=== PATIENT | female | born 1965 | race Caucasian/White ===

== ENCOUNTER 2017-01-25 13:11 | Emergency (ER) | payer MEDICAID ==
[2017-01-25 13:36] VITALS: RESP 16; BMI 29.2
--- NOTE | 2017-01-25 13:51 | C.PDOC ---
History Of Present Illness 51 y/o female presents to emergency department with complaint of palpitations and chest pain for 2 days. Patient reports chest pain is sharp. Also notes headache onset just prior to arrival. Denies any significant past medical history; reports history of tubal ligation and cholecystectomy. Otherwise denies fever, chills, nausea, vomiting, SOB, cough, or other associated symptoms. Time Seen by Provider: 01/25/17 13:25 Chief Complaint (Nursing): Palpitations History Per: Patient History/Exam Limitations: no limitations Onset/Duration Of Symptoms: Days (2) Current Symptoms Are (Timing): Still Present Recent travel outside of the [place]: No Past Medical History Reviewed: Historical Data, Nursing Documentation, Vital Signs Vital Signs: Last Vital Signs Temp 98.2 F 01/25/17 13:28 Pulse 90 01/25/17 13:28 Resp 16 01/25/17 13:28 BP 113/77 01/25/17 13:28 Pulse Ox 98 01/25/17 13:28 - Medical History PMH: Asthma, Diverticulitis Surgical History: Cholecystectomy - [facility] Procedures TETANUS TOXOID ADMINIST (04/23/13) Family History: States: Unknown Family Hx - Social History Hx Tobacco Use: Yes Hx Alcohol Use: No Hx Substance Use: No - Immunization History Hx Tetanus Toxoid Vaccination: No Hx Influenza Vaccination: No Hx Pneumococcal Vaccination: No Review Of Systems Except As Marked, All Systems Reviewed And Found Negative. Constitutional: Negative for: Fever, Chills Cardiovascular: Positive for: Chest Pain, Palpitations Respiratory: Negative for: Cough, Shortness of Breath, Wheezing Gastrointestinal: Negative for: Nausea, Vomiting, Abdominal Pain Skin: Negative for: Rash Neurological: Positive for: Headache. Negative for: Dizziness Physical Exam - Physical Exam Appears: Non-toxic, No Acute Distress Skin: Normal Color, Warm, Dry Head: Atraumatic, Normacephalic Oral Mucosa: Moist Chest: Symmetrical Cardiovascular: Rhythm Regular, No Murmur Respiratory: Normal Breath Sounds, No Rales, No Rhonchi, No Wheezing Gastrointestinal/Abdominal: Soft, No Tenderness, No Guarding, No Rebound Back: Normal Inspection Extremity: Normal ROM, Capillary Refill (< 2 sec. ) Neurological/Psych: Oriented x3, Normal Speech, Normal Cognition ED Course And Treatment O2 Sat by Pulse Oximetry: 98 (RA) Pulse Ox Interpretation: Normal Progress Note: Cardiac workup. - PA / FILLING STATION ATTENDANT / Resident Statement MD/DO has reviewed & agrees with the documentation as recorded. - Scribe Statement The provider has reviewed the documentation as recorded by the Madelynibgurdeep Posada All medical record entries made by the Linda were at my direction and personally dictated by me. I have reviewed the chart and agree that the record accurately reflects my personal performance of the history, physical exam, medical decision making, and the department course for this patient. I have also personally directed, reviewed, and agree with the discharge instructions and disposition.
--- NOTE | 2017-01-25 13:53 | C.PDOC ---
History Of Present Illness 51 y/o female presents to emergency department with complaint of palpitations and chest pain for 2 days. Patient reports chest pain is sharp. Also notes headache onset just prior to arrival. Denies any significant past medical history; reports history of tubal ligation and cholecystectomy. Otherwise denies fever, chills, nausea, vomiting, SOB, cough, or other associated symptoms. Time Seen by Provider: 01/25/17 13:25 Chief Complaint (Nursing): Palpitations History Per: Patient History/Exam Limitations: no limitations Onset/Duration Of Symptoms: Days (2) Current Symptoms Are (Timing): Still Present Associated Symptoms: denies: Dyspnea, Diaphoresis Exacerbating Factors: None Recent travel outside of the [place]: No Past Medical History Reviewed: Historical Data, Nursing Documentation, Vital Signs Vital Signs: Last Vital Signs Temp 98.2 F 01/25/17 13:28 Pulse 90 01/25/17 13:28 Resp 16 01/25/17 13:28 BP 113/77 01/25/17 13:28 Pulse Ox 98 01/25/17 15:48 - Medical History PMH: Asthma, Diverticulitis Surgical History: Cholecystectomy - [facility] Procedures TETANUS TOXOID ADMINIST (04/23/13) Family History: States: Unknown Family Hx - Social History Hx Tobacco Use: Yes Hx Alcohol Use: No Hx Substance Use: No - Immunization History Hx Tetanus Toxoid Vaccination: No Hx Influenza Vaccination: No Hx Pneumococcal Vaccination: No Review Of Systems Except As Marked, All Systems Reviewed And Found Negative. Constitutional: Negative for: Fever, Chills Cardiovascular: Positive for: Chest Pain, Palpitations Respiratory: Negative for: Cough, Shortness of Breath, Wheezing Gastrointestinal: Negative for: Nausea, Vomiting, Abdominal Pain Skin: Negative for: Rash Neurological: Positive for: Headache (mild). Negative for: Dizziness Physical Exam - Physical Exam Appears: Non-toxic, No Acute Distress Skin: Normal Color, Warm, Dry Head: Atraumatic, Normacephalic Oral Mucosa: Moist Chest: Symmetrical, Tenderness (anterior chest) Cardiovascular: Rhythm Regular Respiratory: Normal Breath Sounds, No Rales, No Rhonchi, No Wheezing Gastrointestinal/Abdominal: Soft, No Tenderness, No Guarding, No Rebound Back: Normal Inspection Extremity: Normal ROM, Capillary Refill (< 2 sec. ) Neurological/Psych: Oriented x3, Normal Speech, Normal Cognition ED Course And Treatment - Laboratory Results Result Diagrams: 01/25/17 13:50 01/25/17 13:50 Lab Interpretation: Normal ECG: Interpreted By Me ECG Rhythm: Sinus Rhythm ECG Interpretation: Normal Rate From EC O2 Sat by Pulse Oximetry: 98 (RA) Pulse Ox Interpretation: Normal - Radiology CXR: Interpreted by Me CXR Interpretation: Yes: No Acute Disease Progress Note: Cardiac workup ordered. Treated with Tylenol for headache. Treated with toradol IV Reassessment Condition: Improved Disposition Counseled Patient/Family Regarding: Studies Performed, Diagnosis, Need For Followup, Rx Given - Disposition Referrals: Rao Lorenz MD [Medical Doctor] - Disposition: HOME/ ROUTINE Disposition Time: 17:00 Condition: STABLE Additional Instructions: Return to ED if any increase symptoms Return to ED if any increase symptoms Prescriptions: Naproxen [Naprosyn] 1 tab PO BID PRN #25 tab PRN Reason: Pain Instructions: Palpitations (ED), Chest Wall Pain (ED) - POA Present On Arrival: None - Clinical Impression Clinical Impression: Palpitations, Chest wall pain - PA / FACILITY ENGINEER / Resident Statement MD/DO has reviewed & agrees with the documentation as recorded. - Scribe Statement The provider has reviewed the documentation as recorded by the Scribe Alphonse Posada All medical record entries made by the Madelynibe were at my direction and personally dictated by me. I have reviewed the chart and agree that the record accurately reflects my personal performance of the history, physical exam, medical decision making, and the department course for this patient. I have also personally directed, reviewed, and agree with the discharge instructions and disposition.
[2017-01-25 13:54] LABS: BASO # 0.1 K/uL (0.0-0.2); BASO % 1.3 % (0.0-2.0); EOS # 0.3 K/uL (0.0-0.7); EOS % 3.4 % (0.0-4.0); HEMATOCRIT 43.1 % (34.0-47.0); LYMPH # 4.3 K/uL (1.0-4.3); LYMPH % 40.9 % (20.0-40.0); MEAN CORPUSCULAR HEMOGLOBIN 26.1 pg (27.0-31.0); MEAN CORPUSCULAR HGB CONC 32.6 g/dL (33.0-37.0); MEAN PLATELET VOLUME 10.1 fL (7.2-11.7); MONO # 0.6 K/uL (0.0-0.8); MONO % 5.4 % (0.0-10.0); NRBC % 0.1 % (0.0-2.0); RED CELL DISTRIBUTION WIDTH 14.4 % (11.5-14.5); WHITE BLOOD COUNT 10.4 K/uL (4.8-10.8)
[2017-01-25 14:02] LABS: CHLORIDE 99 mmol/L (98-107)
[2017-01-25 14:03] LABS: POTASSIUM 4.1 mmol/L (3.6-5.2); SODIUM 138 mmol/L (132-148)
--- NOTE | 2017-01-25 14:04 | RAD ---
HISTORY: SOB COMPARISON: None available. TECHNIQUE: Chest, one view. FINDINGS: Examination limited by habitus. LUNGS: No focal consolidation. Please note that chest x-ray has limited sensitivity for the detection of pulmonary masses. PLEURA: No significant pleural effusion identified. No definite pneumothorax . CARDIOVASCULAR: The cardiomediastinal silhouette appears within normal limits of size. OSSEOUS STRUCTURES: No acute osseous abnormality identified. VISUALIZED UPPER ABDOMEN: Unremarkable. OTHER FINDINGS: None. IMPRESSION: No focal consolidation, significant pleural effusion, or definite pneumothorax identified.
[2017-01-25 14:05] LABS: AST/SGOT 24 U/L (14-36); BILIRUBIN,TOTAL 0.6 mg/dL (0.2-1.3); CARBON DIOXIDE 27 mmol/L (22-30); GFR AFRICAN-AMERICAN > 60
[2017-01-25 14:06] LABS: ALB/GLOB RATIO 1.2 (1.0-2.1); ALKALINE PHOSPHATASE 75 U/L (38-126); ALT/SGPT 14 U/L (9-52); BLOOD UREA NITROGEN 12 mg/dL (7-17); CALCIUM 8.6 mg/dl (8.6-10.4); GLUCOSE,RANDOM 104 mg/dL (65-105); TOTAL PROTEIN 7.9 g/dL (6.3-8.3)
[2017-01-25 14:38] LABS: THYROID STIMULATING HORMONE 1.65 mIU/L (0.46-4.68)
[2017-01-25 16:20] LABS: RBC URINE < 1 /hpf (0-3); URINE BACTERIA RARE (<OCC); URINE BILIRUBIN NEGATIVE (NEGATIVE); URINE BLOOD NEGATIVE (NEGATIVE); URINE COLOR Yellow (YELLOW); URINE GLUCOSE (UA) NORMAL (Normal); URINE KETONE NEGATIVE (NEGATIVE); URINE LEUKOCYTE ESTERASE NEG Leu/uL (Negative); URINE PROTEIN NEGATIVE (NEGATIVE); URINE UROBILINOGEN NORMAL mg/dL (0.2-1.0); WBC URINE 1 /hpf (0-5)
[2017-01-25 16:53] VITALS: BP 101/71; PULSE 73; TEMP 98.5; O2SAT 94
--- NOTE | 2017-01-29 15:34 | CARD ---
APPROVED REPORT EKG Measurement Heart [id number] <Conclusion> Sinus rhythm with occasional premature ventricular complexes Otherwise normal ECG
== END 2017-01-25 16:54 | disposition home or self-care (01) ==
LOC: C.ER 13:11
DX: R07.89 Other chest pain (principal); R00.2 Palpitations
CPT/HCPCS: 71010; 80053; 81001; 82553; 83690; 84443; 84484; 85025; 93005; 96374; 99284; J1885